=== PATIENT | female | born 1985 | race Caucasian/White ===

== ENCOUNTER 2020-09-22 09:07 | Emergency (ER) | payer OTHER, SELFPAY ==
[~2020-09-22] VITALS: Ht 160 cm; Wt 43.2 kg
[~2020-09-22 09:07] MED LIST: GABA-1171 PO; MELO15TA28 PO; NORC1TAB7 PO; SPRI28TA PO
[2020-09-22] MEDS ORDERED: RISP-9 (09:15)
[2020-09-22] MEDS ORDERED: OMEP-218 (09:15)
[2020-09-22] MEDS ORDERED: ONDA-83 (09:15)
[2020-09-22] MEDS ORDERED: METH20TA29 (09:15)
[2020-09-22] MEDS ORDERED: MIRTAZAPINE (09:15)
[2020-09-22] MEDS ORDERED: MI-A80CH (09:15)
[2020-09-22] MEDS ORDERED: DIAZ5TAB (09:15)
[2020-09-22] MEDS ORDERED: DICY20TA11 (09:15)
[2020-09-22] MEDS ORDERED: ONDANSETRON 4 MG ORAL DISINTEGRATING TAB PO ONE (09:40)
--- NOTE | 2020-09-22 10:11 | REP ---
INDICATION: constipation. COMPARISON: None. TECHNIQUE: Two views of the abdomen and pelvis. FINDINGS: Bowel gas pattern is nonspecific. No bowel obstruction or perforation. No obvious fecal stasis/constipation. No organomegaly. No abnormal calcifications or foreign body. Skeletal structures intact. IMPRESSION: Normal abdominal radiographs. <Electronically signed by Sebastián Holt > 09/22/20 1007
[2020-09-22] MEDS ORDERED: BISACODYL 10 MG SUPP PR ONE (10:25)
[2020-09-22] MEDS ORDERED: NS 1,000 ML IV ONE (11:45)
[2020-09-22 12:05] LABS: BASO # 0.1 10^3/uL (0.0-0.2); EOS # 0.1 10^3/uL (0.0-0.5); HEMATOCRIT 41.8 % (36.0-47.0); HEMOGLOBIN 13.8 g/dl (12.0-15.5); LYMPH % 24.5 % (24.0-44.0); MEAN CORPUSCULAR HEMOGLOBIN 31.2 pg (27.0-33.0); MEAN CORPUSCULAR VOLUME 94.6 fl (80.0-96.0); MONO # 0.5 10^3/uL (0.0-0.8); MONO % 5.6 % (2.0-8.0); NEUTROPHILS # 5.6 10^3/uL (1.5-8.5); NEUTROPHILS % 67.4 % (36.0-66.0); PLATELET COUNT, AUTOMATED 210 10^3/uL (150-450); RED BLOOD COUNT 4.42 10^6/uL (4.00-5.40); WHITE BLOOD COUNT 8.3 10^3/uL (4.0-10.0)
[2020-09-22 12:36] LABS: ALBUMIN 3.8 GM/DL (3.2-5.2); ALT/SGPT 19 U/L (12-78); BILIRUBIN,DIRECT 0.1 MG/DL (0.0-0.2); BILIRUBIN,TOTAL 0.5 MG/DL (0.2-1.0); BLOOD UREA NITROGEN 9 MG/DL (7-18); CALCIUM LEVEL 8.9 MG/DL (8.5-10.1); CARBON DIOXIDE LEVEL 25 MEQ/L (21-32); CHLORIDE LEVEL 108 MEQ/L (98-107); GLOMERULAR FILTRATION RATE > 60.0 (>60); GLUCOSE, FASTING 87 MG/DL (70-100); LIPASE 68 U/L (73-393); POTASSIUM SERUM 4.2 MEQ/L (3.5-5.1); SODIUM LEVEL 139 MEQ/L (136-145); TOTAL PROTEIN 6.6 GM/DL (6.4-8.2)
[2020-09-22] MEDS ORDERED: FLEET OIL RETENTION ENEMA PR ONE (13:15)
[2020-09-22 14:32] LABS: APPEARANCE, URINE CLEAR (CLEAR); BACTERIA, URINE AUTO 1+ (NEGATIVE); BILIRUBIN, URINE AUTO NEGATIVE (NEGATIVE); BLOOD, URINE BLOOD NEGATIVE (NEGATIVE); COLOR, URINE YELLOW (YELLOW); GLUCOSE, URINE (UA) AUTO NEGATIVE (NEGATIVE); KETONE, URINE AUTO 2+ mg/dL (NEGATIVE); LEUKOCYTE ESTERASE, URINE AUTO NEGATIVE (NEGATIVE); MUCUS, URINE SMALL (NEGATIVE); NITRITE, URINE AUTO NEGATIVE (NEGATIVE); PROTEIN, URINE AUTO NEGATIVE (NEGATIVE); RBC, URINE AUTO 0 /HPF (0-3); SPECIFIC GRAVITY URINE AUTO 1.015 (1.002-1.035); SQUAMOUS EPITHELIAL CELL UR AU 2 /HPF (0-6); UROBILINOGEN, URINE AUTO 0.2 mg/dL (0.0-2.0); WBC, URINE AUTO 1 /HPF (0-3)
[2020-09-22] MEDS ORDERED: GI COCKTAIL 50ML BTL(HYOSCYAMINE/MAALOX/LIDOCAINE VISCOUS)(1:3:1) PO ONE (15:25)
[2020-09-22] MEDS ORDERED: PROT1TAB2 PO (15:54)
[2020-09-22] MEDS ORDERED: CARA1TAB6 PO (15:54)
[2020-09-22 16:19] VITALS: BP 99/55
[2020-09-22] MEDS ORDERED: SUCRALFATE 1 GM TAB PO ONE (16:20)
== END 2020-09-22 16:26 | disposition home or self-care (01) ==
LOC: M ED 09:07
DX: K59.00 Constipation, unspecified (principal); K29.00 Acute gastritis without bleeding; F17.200 Nicotine dependence, unspecified, uncomplicated; Z79.899 Other long term (current) drug therapy; Z88.6 Allergy status to analgesic agent; Z88.8 Allergy status to other drugs, medicaments and biological substances
CPT/HCPCS: 74019; 80048; 80076; 81001; 83690; 85025; 87505; 96360; 96361; 99284; Q0162

== ENCOUNTER → 2021-11-02 | Outpatient (REF) ==
[~2021-11-02] MED LIST changes: +CARA1TAB6 PO; +DIAZ5TAB; +DICY20TA20; +METH20TA29; +MI-A80CH; +MIRTAZAPINE; +OMEP-173; +ONDA-83; +PROT1TAB2 PO; +RISP-9
== END ==
LOC: M PLAIMG 12:26
PROVIDERS: ATTEND Internal Medicine
DX: R52 Pain, unspecified (principal)